=== PATIENT | male | born 1955 | race Caucasian/White ===

== ENCOUNTER 2019-04-06 18:09 | Inpatient (IN) | payer OTHER ==
[~2019-04-06] VITALS: Ht 185.4 cm; Wt 101.6 kg
--- NOTE | ~2019-04-06 | O ---
[facility] [place] [address] OPERATIVE REPORT Name: JEANIE HURLEY Room #: 449-I ADM IN M.R.#: [id number] Admission: 04/06/19 Attend Phys: Zenon Arredondo Discharge: Date of : 51 Report #: [id number] THIS REPORT FOR: cc: Jeanie Erazo James A. DO Patterson, Jonathan D. MD ~ CC: Jeanie Schmidt DATE OF SERVICE: 04/07/2019 PREOPERATIVE DIAGNOSIS: Acute appendicitis. POSTOPERATIVE DIAGNOSIS: Acute appendicitis. OPERATION: Laparoscopic appendectomy. SURGEON: Dwight Schmidt MD ANESTHESIA: General. ESTIMATED BLOOD LOSS: Minimal. SPECIMEN: Appendix. DESCRIPTION OF PROCEDURE: After informed consent was obtained, the patient was brought to the operating room and placed supine. SCDs were placed and working, preoperative antibiotics were administered, general anesthesia was induced. The abdomen was prepped and draped in the usual sterile fashion. A 10-mm incision was made below the umbilicus. Fascia was incised and a trocar was placed. Pneumoperitoneum was established. Left lower quadrant and right upper quadrant 5-mm ports were placed. The appendix was visualized. The appendix was grasped and retracted anteriorly. The mesoappendix was ligated using the LigaSure device. The base of the appendix was then stapled off with a SATURNINO blue load stapler. Appendix was then placed into an Endopouch and removed. The fascia was closed with a [id number] 0 Vicryl. Skin was closed with 4-0 Monocryl. Incisions were sealed with Dermabond. COMPLICATIONS: None. DISPOSITION: The patient was taken to recovery in satisfactory condition. By: [id number] Dwight Schmidt MD /nt
[2019-04-06 18:09] VITALS: BP 172/98
[~2019-04-06 18:09] MED LIST: FISHOIL OR; HYDROCODON-ACE1 EAC7 OR; HYDROXYCHLOROQ200 M1 OR; LISINOPRIL20 MG OR; METHOTREXA1 GM/40 M1 IJ; NAPROSYN500 MG OR; SULFASALAZINE500 M4 PO; THERA-M CAPLET1 EACH OR
[2019-04-06] MEDS ORDERED: HUMIRA PEN40 MG/0.4 SUBQ (18:29)
[2019-04-06 19:09] LABS: ABSOLUTE NEUTROPHILS 5.5 thou/uL (1.4-8.2); BASOPHILS 0.5 % (0.0-2.0); EOSINOPHILS 2.1 % (0.0-3.0); HEMATOCRIT 42.3 % (42.0-52.0); HEMOGLOBIN 14.2 gm/dL (14.0-18.0); LYMPHOCYTES 20.9 % (24.0-44.0); MCH 31.4 pg (26.0-34.0); MCHC 33.5 g/dL (28.0-37.0); MCV 93.7 fL (80.0-100.0); MONOCYTES 11.1 % (1.0-8.0); PLATELET COUNT 215 thou/uL (150-400); POLYS 65.4 % (36.0-66.0); RBC 4.52 mil/uL (4.50-6.00); RDW 12.3 % (10.5-14.5); WBC 8.5 thou/uL (4.0-11.0)
[2019-04-06] MEDS ORDERED: LISINOPRIL5 MG PO (19:12)
[2019-04-06] MEDS ORDERED: PLAQUENIL200 MG PO (19:18)
[2019-04-06 19:20] LABS: CALCIUM 8.9 mg/dL (8.5-10.1); CREATININE 1.5 mg/dL (0.7-1.3); POTASSIUM 4.1 mmol/L (3.5-5.1)
[2019-04-06 19:24] LABS: URINE BILIRUBIN NEGATIVE (Negative); URINE BLOOD 2+ (Negative); URINE CLARITY CLEAR; URINE COLOR YELLOW; URINE GLUCOSE-RANDOM* NEGATIVE (Negative); URINE KETONES NEGATIVE (Negative); URINE LEUKOCYTES-REFLEX NEGATIVE (Negative); URINE NITRITE-REFLEX NEGATIVE (Negative); URINE PROTEIN (DIPSTICK) NEGATIVE (Negative); URINE SPECIFIC GRAVITY >= 1.030 (1.005-1.035); URINE UROBILINOGEN 0.2 E.U./dl (0.2-1.0)
[2019-04-06 19:26] LABS: ALBUMIN 3.9 g/dL (3.4-5.0); TOTAL BILIRUBIN 0.5 mg/dL (<0.1-1.0); TOTAL PROTEIN 7.4 g/dL (6.4-8.2)
[2019-04-06 19:33] LABS: BACTERIA-REFLEX 1-9 Few /HPF (None Seen); CASTS None Seen /LPF (None Seen); CRYSTALS None Seen /LPF (None Seen); SQUAMOUS None Seen /LPF (0-3); URINE RBC 3-10 Few /HPF (0-2); URINE WBC-REFLEX 0-5 Rare /HPF (0-5)
[2019-04-06 21:57] VITALS: BP 151/90
[2019-04-06 22:22] VITALS: BP 151/90
[2019-04-06 23:14] VITALS: BP 129/97
--- NOTE | 2019-04-07 03:14 | NUR ---
PT CAME TO THE UNIT FROM THE ER AT 2300 WITH COMPLAIN OF RLQ ABD PAIN X3DAYS .PAIN IS NON RADIATING AND DULL.PT RATE PAIN 3/10, WITH NO PROVOCAKING OR ALLEVIATING FACTORS.PT LBM 04/06/19.NO NAUSEA AND VOMITING.PT HAS HX OF KIDNEY STONE AND URINE NEEDS TO BE STRAIN.PT IS A/O X4.PT IS UP AD DEEPTI .ADMISSION ASSESSMENT AND EDUCATION COMPLETED.PT IV ACCESS ON LAC WITH NS AT 125CC/HR.PT IS ON REGULAR DIET .WILL CONTINUE TO MONITOR POC
[2019-04-07 06:12] LABS: HEMATOCRIT 38.7 % (42.0-52.0); MCH 31.7 pg (26.0-34.0); MCHC 33.5 g/dL (28.0-37.0); MCV 94.6 fL (80.0-100.0); PLATELET COUNT 198 thou/uL (150-400); RBC 4.09 mil/uL (4.50-6.00); RDW 12.3 % (10.5-14.5); WBC 7.6 thou/uL (4.0-11.0)
[2019-04-07 06:38] LABS: CALCIUM 8.6 mg/dL (8.5-10.1); CREATININE 1.4 mg/dL (0.7-1.3); MAGNESIUM 1.9 mg/dL (1.8-2.4); POTASSIUM 3.7 mmol/L (3.5-5.1)
[2019-04-07 07:34] VITALS: BP 131/75
[2019-04-07 08:21] LABS: ABSOLUTE NEUTROPHILS 3.9 thou/uL (1.4-8.2); ATYPICAL LYMPHS 3 %; PLATELET ESTIMATE NORMAL
--- NOTE | 2019-04-07 19:40 | NUR ---
VSS-AFEBRILE. LUNGS CLEAR-ROOM AIR. LAPAROSCOPIC APPENDECTOMY PERFORMED, LAP SITES X 3 WITH SURGICAL GLUE TO CLOSE. NO REPORTED N/V, NO REPORTED PAIN POST OPERATIVELY. NO DIFFICULTY VOIDING POST OP. OOB AD DEEPTI-STEADY ON FEET. CALLS APPROPRIATELY WITH ANY NEEDS.
[2019-04-07 20:41] VITALS: BP 135/71
[2019-04-07 22:33] VITALS: BP 135/71
[2019-04-07 23:44] VITALS: BP 115/51
--- NOTE | 2019-04-08 00:02 | NUR ---
Pt. is alert and oriented x 4 without any complaints. Resp. even and non-labored. Pt ambulates ad alina holding IV pole. Gait slow and steady. VSS. Lap sites to umbilical area, and left and right mid abdomen are well approximated with operative glue. Sites are without redness, drainage, or edema.
[2019-04-08 05:37] VITALS: BP 113/65
[2019-04-08 06:09] LABS: HEMATOCRIT 37.1 % (42.0-52.0); HEMOGLOBIN 12.4 gm/dL (14.0-18.0); MCH 31.6 pg (26.0-34.0); MCHC 33.5 g/dL (28.0-37.0); MCV 94.5 fL (80.0-100.0); RBC 3.93 mil/uL (4.50-6.00); RDW 12.4 % (10.5-14.5)
[2019-04-08 06:19] LABS: CALCIUM 7.7 mg/dL (8.5-10.1); CREATININE 1.1 mg/dL (0.7-1.3); POTASSIUM 3.8 mmol/L (3.5-5.1)
[2019-04-08] MEDS ORDERED: FLOMAX0.4 MG PO (13:48)
[2019-04-08] MEDS ORDERED: NORCO 5-325 TA1 EAC1 PO (13:49)
[2019-04-08 14:13] VITALS: BP 113/65
--- NOTE | 2019-04-08 15:34 | NUR ---
Assumed patient care at 0715. Vital signs have been stable. Pain has ranged from 3-7 in right lower quadrant of abdomen. He requested and received Morphine IV push and Hydrocodone 5/325mg po x's 1 each during this shift. Medications were helpful with pain control. All surgical sites sealed with surgical glue. No signs or symptoms of infection. Patient reported that he was urinating without difficulty. He verbalized an understanding of all Discharge Instructions prior to signing Discharge Paperwork. Patient left with all belongings and paperwork. He was escorted by a family member. POC followed. Discharge time was 1510.
--- NOTE | 2019-04-10 15:08 | PATH ---
[facility] [address] [place] [address] PATHOLOGY RPT PROCEDURE Name: JEANIE HURLEY Room #: 449-I [facility] IN M.R.#: [id number] Admission: 04/06/19 Date of : 51 Discharge: 04/08/19 Report #: [id number] Path Case #: [id number] [facility] Accession Number: [id number] . 01 Material submitted: . appendix - APPENDIX . 01 Clinical history: . appendicitis . 02 Diagnosis: Appendix, appendectomy: - Mild chronic inflammation. - Fibrous obliteration of the appendix. (IUV:pit 04/10/2019) . QTP 04/10/2019 1310 Local . 02 Electronically signed: . Sapphire Ramirez MD, Pathologist NPI- [id number] . 01 Gross description: . The specimen is received in formalin, labeled "Jeanie Hurley appendix" and consists of an appendix measuring 4.8 cm in length and up to 1.4 cm in diameter with mesoappendix measuring 2.5 cm thick. The serosa is white vallecillo with creeping fat. The margin is closed with a line of rosemary and inked black. Sectioning reveals a white vallecillo lumen with a possible diverticulum at the tip measuring 0.9 cm. The appendix is entirely submitted in A1-A5. (SDY; 04/09/2019) SYU/SYU 04/09/2019 1753 Local . 02 Pathologist provided ICD-10: K35.80 . 02 CPT . [id number] Specimen Comment: A courtesy copy of this report has been sent to [phone] Specimen Comment: [phone], Specimen Comment: Report sent to ,DR ESTRELLA / DR BANDA Performed at: [address] [id number] MD Shoaib Hansen MD Phone: [phone] Performed at: 02 [place] [address] PATHOLOGY RPT PROCEDURE Name: JEANIE HURLEY Room #: 449-I DIS IN M.R.#: [id number] Admission: 04/06/19 Date of : 51 Discharge: 04/08/19 Report #: [id number] Path Case #: [id number] [facility] [address], [place], [place] [id number] MD Sapphire Ramirez MD Phone: [phone]
== END 2019-04-08 15:10 | disposition home or self-care (01) | DRG 342 ==
LOC: ER 18:09 → EROBS 21:20 → 4W 22:34
PROVIDERS: Emergency Medicine; Hospitalist; Nurse Practitioner; ADMIT Hospitalist
PROC: 0DTJ4ZZ Resection of Appendix, Percutaneous Endoscopic Approach (ICD-10-PCS; principal; 2019-04-07)
DX: K35.80 Unspecified acute appendicitis (principal); N13.30 Unspecified hydronephrosis; N17.9 Acute kidney failure, unspecified; N13.4 Hydroureter; M06.9 Rheumatoid arthritis, unspecified; I10 Essential (primary) hypertension; Z79.899 Other long term (current) drug therapy
CPT/HCPCS: 10040; 50010; 50101; 50290; 50411; 50555; 50740; 50819; 51489; 52265; 52266; 53307; 53312; 53314; 54118; 56525; 56526; 62110; 62900; 70005

== ENCOUNTER 2019-04-12 16:48 | Emergency (ER) | payer OTHER ==
[~2019-04-12] VITALS: Ht 185.4 cm; Wt 97.5 kg
[~2019-04-12 16:48] MED LIST changes: +FLOMAX0.4 MG PO; +HUMIRA PEN40 MG/0.4 SUBQ; +LISINOPRIL5 MG PO; +NORCO 5-325 TA1 EAC1 PO; +PLAQUENIL200 MG PO
[2019-04-12 18:01] LABS: ABSOLUTE NEUTROPHILS 7.1 thou/uL (1.4-8.2); BASOPHILS 0.2 % (0.0-2.0); HEMATOCRIT 44.2 % (42.0-52.0); HEMOGLOBIN 14.7 gm/dL (14.0-18.0); LYMPHOCYTES 14.1 % (24.0-44.0); MCH 31.2 pg (26.0-34.0); MCHC 33.2 g/dL (28.0-37.0); MCV 93.9 fL (80.0-100.0); MONOCYTES 10.4 % (1.0-8.0); PLATELET COUNT 257 thou/uL (150-400); POLYS 74.3 % (36.0-66.0); RBC 4.71 mil/uL (4.50-6.00); RDW 12.6 % (10.5-14.5); WBC 9.5 thou/uL (4.0-11.0)
[2019-04-12 18:05] LABS: CALCIUM 9.4 mg/dL (8.5-10.1); CREATININE 1.4 mg/dL (0.7-1.3); POTASSIUM 4.1 mmol/L (3.5-5.1)
[2019-04-12 18:11] LABS: ALBUMIN 3.5 g/dL (3.4-5.0); TOTAL BILIRUBIN 0.8 mg/dL (<0.1-1.0); TOTAL PROTEIN 7.3 g/dL (6.4-8.2)
[2019-04-12 18:56] LABS: URINE BILIRUBIN NEGATIVE (Negative); URINE BLOOD 2+ (Negative); URINE CLARITY CLEAR; URINE COLOR YELLOW; URINE GLUCOSE-RANDOM* NEGATIVE (Negative); URINE KETONES NEGATIVE (Negative); URINE LEUKOCYTES-REFLEX 1+ (Negative); URINE NITRITE-REFLEX NEGATIVE (Negative); URINE PROTEIN (DIPSTICK) NEGATIVE (Negative); URINE UROBILINOGEN 0.2 E.U./dl (0.2-1.0)
[2019-04-12 19:12] LABS: HYALINE CASTS 0-3 Few /LPF (None Seen); MUCUS 0-3 Light strn/LPF (None Seen); SQUAMOUS 0-3 Few /LPF (0-3); URINE WBC-REFLEX 6-15 Few /HPF (0-5); WBC CLUMPS Few (None Seen)
[2019-04-12 19:13] LABS: CRYSTALS None Seen /LPF (None Seen); URINE RBC 3-10 Few /HPF (0-2)
[2019-04-12] MEDS ORDERED: BACTRIM DS TAB1 EACH PO (19:54)
[2019-04-12] MEDS ORDERED: NORCO 5-325 TA1 EAC1 PO (19:54)
[2019-04-12 20:30] VITALS: BP 150/83
== END 2019-04-12 20:30 | disposition home or self-care (01) ==
LOC: ER 16:48
PROVIDERS: Emergency Medicine
DX: N39.0 Urinary tract infection, site not specified (principal); N20.0 Calculus of kidney; M06.9 Rheumatoid arthritis, unspecified; I10 Essential (primary) hypertension; Z88.1 Allergy status to other antibiotic agents; Z87.442 Personal history of urinary calculi

== ENCOUNTER → 2020-02-13 | Outpatient (CLI) | payer OTHER ==
[~2020-02-13] MED LIST changes: +BACTRIM DS TAB1 EACH PO
== END ==
LOC: LAB 12:34
PROVIDERS: ATTEND Nurse Practitioner
DX: Z20.828 Contact with and (suspected) exposure to other viral communicable diseases (principal)

== ENCOUNTER → 2021-02-17 | Outpatient (CLI) | payer OTHER ==
[2021-02-17 16:52] LABS: ABSOLUTE NEUTROPHILS 3.5 thou/uL (1.4-8.2); BASOPHILS 0.7 % (0.0-2.0); EOSINOPHILS 5.6 % (0.0-3.0); HEMOGLOBIN 15.2 gm/dL (14.0-18.0); LYMPHOCYTES 34.8 % (24.0-44.0); MCH 31.5 pg (26.0-34.0); MCHC 33.9 g/dL (28.0-37.0); MCV 92.9 fL (80.0-100.0); PLATELET COUNT 206 thou/uL (150-400); POLYS 48.9 % (36.0-66.0); RBC 4.84 mil/uL (4.50-6.00); RDW 12.9 % (10.5-14.5); WBC 7.1 thou/uL (4.0-11.0)
[2021-02-17 17:36] LABS: ANION GAP 8 mmol/L (7-16); BUN 19 mg/dL (7-18); CALCIUM 9.4 mg/dL (8.5-10.1); CHLORIDE 106 mmol/L (98-107); CO2 26 mmol/L (21-32); CREATININE 1.2 mg/dL (0.7-1.3); GLUCOSE 100 mg/dL (74-106); SGOT 32 U/L (15-37); SGPT 32 U/L (30-65); SODIUM 140 mmol/L (136-145); TOTAL BILIRUBIN 0.7 mg/dL (0.2-1.0); TOTAL PROTEIN 7.2 g/dL (6.4-8.2)
== END ==
LOC: LAB 16:17
PROVIDERS: ATTEND Nurse Practitioner Family
DX: M05.79 Rheumatoid arthritis with rheumatoid factor of multiple sites without organ or systems involvement (principal)

== ENCOUNTER → 2021-03-25 | Outpatient (CLI) | payer OTHER ==
[2021-03-25 09:14] LABS: ABSOLUTE NEUTROPHILS 2.8 thou/uL (1.4-8.2); EOSINOPHILS 8.1 % (0.0-3.0); HEMATOCRIT 47.4 % (42.0-52.0); LYMPHOCYTES 32.2 % (24.0-44.0); MCH 31.2 pg (26.0-34.0); MCHC 33.9 g/dL (28.0-37.0); MCV 92.2 fL (80.0-100.0); MONOCYTES 11.8 % (1.0-8.0); PLATELET COUNT 180 thou/uL (150-400); POLYS 46.9 % (36.0-66.0); RBC 5.14 mil/uL (4.50-6.00)
[2021-03-25 09:34] LABS: ALBUMIN 3.9 g/dL (3.4-5.0); ANION GAP 8 mmol/L (7-16); BUN 21 mg/dL (7-18); CALCIUM 8.4 mg/dL (8.5-10.1); CHLORIDE 104 mmol/L (98-107); CHOLESTEROL 143 mg/dL (<200); CO2 27 mmol/L (21-32); CREATININE 1.2 mg/dL (0.7-1.3); GLUCOSE 95 mg/dL (74-106); HDL CHOLESTEROL 68 mg/dL (>40); LDL CHOLESTEROL 69 mg/dL (<100); POTASSIUM 4.7 mmol/L (3.5-5.1); SGOT 22 U/L (15-37); SGPT 30 U/L (30-65); SODIUM 139 mmol/L (136-145); TC:HDL 2.1 Ratio (Not establshd); TOTAL BILIRUBIN 0.5 mg/dL (0.2-1.0); TRIGLYCERIDE 30 mg/dL (<150); VLDL 6 mg/dL (<40)
[2021-03-26 01:06] LABS: GLYCOHEMOGLOBIN (HGB A1C) 5.6 % (4.8-5.6)
== END ==
LOC: LAB 08:35
PROVIDERS: ATTEND Family Medicine
DX: Z00.00 Encounter for general adult medical examination without abnormal findings (principal)